=== PATIENT | male | born 1975 | race Caucasian/White ===

== ENCOUNTER 2023-06-15 20:42 | Emergency (ER) | payer MEDICAID ==
[~2023-06-15] VITALS: Ht 170.2 cm; Wt 106.6 kg
[2023-06-15 21:00] VITALS: BP 142/91; PULSE 84; RESP 17; TEMP 98.2; O2SAT 98
[2023-06-15 23:29] LABS: BASOPHILS % (AUTO) 0.4 % (0.0-2.0); EOSINOPHILS # (AUTO) 0.2 K/uL (0-0.4); EOSINOPHILS % (AUTO) 2.2 % (0.0-4.0); HEMATOCRIT 40.3 % (36-52); HEMOGLOBIN 13.9 g/dL (12.0-18.0); LYMPHOCYTES # (AUTO) 2.3 K/uL (2.0-11.5); LYMPHOCYTES % (AUTO) 29.8 % (20.5-51.1); MEAN CORPUSCULAR HEMOGLOBIN 32 pg (27-31); MEAN CORPUSCULAR HGB CONC 35 g/dL (33-37); MEAN CORPUSCULAR VOLUME 93.9 fL (80-94); MONOCYTES # (AUTO) 0.6 K/uL (0.8-1.0); MONOCYTES % (AUTO) 7.8 % (1.7-9.3); NEUTROPHILS # (AUTO) 4.6 K/uL (1.8-7.7); NEUTROPHILS % (AUTO) 59.8 % (42.2-75.2); PLATELET COUNT (AUTO) 200 K/uL (140-450); RED CELL DISTRIBUTION WIDTH 12.4 % (11.6-13.7); WHITE BLOOD COUNT (AUTO) 7.7 K/uL (4.8-10.8)
[2023-06-15 23:58] LABS: ANION GAP 14.3 (8-16); CALCIUM 8.9 mg/dL (8.5-10.1); CREATININE 0.7 mg/dL (0.6-1.3); POTASSIUM 4.3 mmol/L (3.5-5.1)
[2023-06-16 01:45] VITALS: BP 131/83; PULSE 78; RESP 16; TEMP 98.2; O2SAT 100
== END 2023-06-16 01:45 | disposition home or self-care (01) ==
LOC: MED 20:42
DX: I10 Essential (primary) hypertension (principal); F43.9 Reaction to severe stress, unspecified
CPT/HCPCS: 36415; 71045; 80048; 84484; 85025; 93005; 99285; Q0092

== ENCOUNTER 2023-06-25 20:09 | Emergency (ER) | payer MEDICAID ==
[~2023-06-25] VITALS: Ht 177.8 cm; Wt 101.2 kg
[2023-06-25 20:20] VITALS: BP 150/98; PULSE 89; RESP 18; TEMP 98; O2SAT 97
== END 2023-06-25 22:34 | disposition left against medical advice (07) ==
LOC: MED 20:09
DX: I10 Essential (primary) hypertension (principal); Z53.21 Procedure and treatment not carried out due to patient leaving prior to being seen by health care provider
CPT/HCPCS: 99281

== ENCOUNTER 2023-08-08 14:38 | Emergency (ER) | payer MEDICAID ==
[~2023-08-08] VITALS: Ht 177.8 cm; Wt 100.7 kg
[2023-08-08 15:00] VITALS: BP 136/84; PULSE 77; RESP 18; TEMP 97.8; O2SAT 99
[2023-08-08 16:54] VITALS: BP 130/78; PULSE 70; RESP 18; TEMP 97.8; O2SAT 98
[2023-08-08 16:56] LABS: BILIRUBIN,URINE NEGATIVE (NEGATIVE); BLOOD, URINE NEGATIVE (NEGATIVE); LEUKOCYTE ESTERASE ,URINE NEGATIVE (NEGATIVE); NITRITE, URINE NEGATIVE (NEGATIVE); PROTEIN,URINE NEGATIVE (NEGATIVE); UGLUCOSE NEGATIVE (NEGATIVE); UROBILINOGEN,URINE 0.2 EU/dL (0.2 - 1)
[2023-08-08 17:02] LABS: APPEARANCE,URINE CLEAR (CLEAR); COLOR,URINE YELLOW (YELLOW)
[2023-08-08 18:09] LABS: BASOPHILS % (AUTO) 0.5 % (0.0-2.0); EOSINOPHILS # (AUTO) 0.1 K/uL (0-0.4); EOSINOPHILS % (AUTO) 1.3 % (0.0-4.0); HEMATOCRIT 40.9 % (36-52); HEMOGLOBIN 14.1 g/dL (12.0-18.0); LYMPHOCYTES # (AUTO) 1.8 K/uL (2.0-11.5); LYMPHOCYTES % (AUTO) 25.8 % (20.5-51.1); MEAN CORPUSCULAR HEMOGLOBIN 33 pg (27-31); MEAN CORPUSCULAR HGB CONC 35 g/dL (33-37); MEAN CORPUSCULAR VOLUME 95.3 fL (80-94); MONOCYTES # (AUTO) 0.4 K/uL (0.8-1.0); NEUTROPHILS # (AUTO) 4.5 K/uL (1.8-7.7); NEUTROPHILS % (AUTO) 66.4 % (42.2-75.2); PLATELET COUNT (AUTO) 186 K/uL (140-450); RED BLOOD CELL COUNT(AUTO) 4.29 MIL/uL (4.20-6.10); RED CELL DISTRIBUTION WIDTH 12.6 % (11.6-13.7); WHITE BLOOD COUNT (AUTO) 6.8 K/uL (4.8-10.8)
[2023-08-08 18:21] LABS: CREATININE 0.8 mg/dL (0.6-1.3); POTASSIUM 3.6 mmol/L (3.5-5.1)
[2023-08-08 18:30] LABS: ALBUMIN 4.2 g/dL (3.4-5.0); ANION GAP 11.7 (8-16); BILIRUBIN,DIRECT 0.1 mg/dL (0.0-0.3); CARBON DIOXIDE 27.9 mmol/L (21-32); TOTAL BILIRUBIN 0.2 mg/dL (0.0-1.0); TOTAL PROTEIN, SERUM 7.8 g/dL (6.4-8.2)
[2023-08-08 18:31] LABS: CALCIUM 8.8 mg/dL (8.5-10.1)
[2023-08-08] MEDS ORDERED: LID5T TP (18:38)
[2023-08-08] MEDS ORDERED: NAPR-1704 PO (18:38)
== END 2023-08-08 18:45 | disposition home or self-care (01) ==
LOC: MED 14:38
DX: R10.9 Unspecified abdominal pain (principal); I10 Essential (primary) hypertension; Z79.899 Other long term (current) drug therapy
CPT/HCPCS: 36415; 80048; 80076; 81003; 85025; 99284